=== PATIENT | male | born 1990 | race African-American/Black ===

== ENCOUNTER 2022-03-20 02:11 | Emergency (ER) | payer OTHER, SELFPAY ==
[2022-03-20 02:26] VITALS: BP 154/93; PULSE 90; RESP 17; TEMP 36.5; O2SAT 98; BMI 29.9
--- NOTE | 2022-03-20 03:51 | ED.NEUROSD ---
HPI - Neuro Symptoms/Deficit General Chief Complaint: Neuro Symptoms/Deficit Stated Complaint: Lt. side of face feels week Time Seen by Provider: 03/20/22 03:51 Source: patient Mode of arrival: Ambulatory History of Present Illness HPI Narrative: Patient is a 31-year-old male who presents with sudden onset of left facial droop. He is un exactly sure of when it happens he says sometime between noon and 5:00 p.m. yesterday. He noticed it because when he went to smoke a cigarette he could not quite feel his lips around the butt. He says it is just not going away. He denies any taste difficulty or speech difficulty. No numbness tingling or weakness. This is never happened to him before. He is on Truvada but denies HIV. On Anticoagulants: No Related Data Previous Rx's Medication Instructions Recorded artificial 2 drp EYE-BOTH BID 7 days #15 mL 03/20/22 tears(ldptawa-hjuufzsm-jdebkow) 0.1 %-0.3 %-0.2 % eye drops prednisone 20 mg tablet 60 mg PO DAILY #15 tabs 03/20/22 valacyclovir 1 gram tablet 1,000 mg PO TID #21 tabs 03/20/22 Allergies Allergy/AdvReac Type Severity Reaction Status Date / Time No Known Drug Allergies Allergy Verified 03/20/22 02:33 Review of Systems Review of Systems Narrative: GENERAL: Denies chills, fatigue, malaise, fever, sweats, travel HEENT: Denies sinus pain, ear pain, sore throat, difficulty swallowing, neck pain RESPIRATORY: Denies dyspnea, cough, wheezing, hemoptysis, sputum. CARDIOVASCULAR: Denies chest pain, palpitations, orthopnea, edema GASTROINTESTINAL: Denies nausea, vomiting, abdominal pain, diarrhea, constipation, melena. : Denies dysuria, frequency, incontinence, hematuria, urinary retention, flank pain. MUSCULOSKELETAL: Denies weakness, joint pain, or bony pain SKIN: No rash, no erythema, no pruritus NEUROLOGIC: See HPI PSYCHIATRIC: No concerning psychosocial issues. 12 point review of systems is negative except for those stated above and HPI Hematologic/Lymphatic On Anticoagulants: No Patient History Social History Smoking Status: Current every day smoker Smoking Status: Current every day smoker alcohol intake frequency: 0-2 drinks per day Substance Use Type: does not use Exam Initial Vital Signs Initial Vital Signs: Vital Signs Temperature 97.7 F 03/20/22 02:26 Pulse Rate 90 03/20/22 02:26 Respiratory Rate 17 03/20/22 02:26 Blood Pressure 154/93 H 03/20/22 02:26 Pulse Oximetry 98 03/20/22 02:26 Oxygen Delivery Method 03/20/22 02:26 GENERAL: Alert well-appearing 31-year-old male no acute distress although he is noted to have left facial droop HEENT: Head atraumatic,EOMI, pupils reactive, left facial droop what I does currently closed. Unable to wrinkle forehead for his no change on the left side. He also is not having any speech issues CARDIOVASCULAR: Regular rate and rhythm without murmurs, rubs or gallops. RESPIRATORY: Breath sounds equal bilaterally, no wheezes rales or rhonchi. ABDOMEN: Soft, nontender. Normoactive bowel sounds all 4 quadrants. No guarding or rebound. EXTREMITIES: Normal range of motion, no clubbing or edema. Neurovascularly intact NEUROLOGICAL: Alert and oriented x4.Normal gait and speech. Cranial nerves II through XII grossly intact. Good hneypt-vz-fwlu, good gvul-mk-cere, strength equal bilaterally, no dysarthria or aphasia, sensation in tact to soft touch bilaterally, no visual changes, no facial droop SKIN: Warm, dry, no laceration, no petechiae, no rashes or lesions. 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 His he has mild low-grade fever here. No other symptoms. Recommend he continue to monitor as needed. At this time he started on prednisone an antiviral medication. I do not see any need for further workup. This is unlikely stroke he is certainly out of window for tPA. Discharge Plan Departure Patient Disposition: Home Clinical Impression: Melton's palsy Instructions: Melton Palsy Activity Restrictions/Additional Instructions: *You have been diagnosed with Melton's palsy *What to do: Symptoms hopefully will start to improve over the next couple of weeks. *Continue to take medications as directed Bowel cyclic clear 1000 mg 3 times a day Artificial tears every hour in both eyes. The use ointment at night. Prednisone 60 mg once a day for 5 days *Follow up with your primary care provider in 2-3 days or call [phone] *Return to ER if you should have increasing blurry vision double vision fainting chest pain palpitations, numbness tingling weakness or any new, worsening or concerning symptoms Prescriptions: New valacyclovir 1 gram tablet 1,000 mg PO TID Qty: 21 0RF artificial tear(duuls-jey-bwx) 0.1-0.3-0.2 % drops 2 drp EYE-BOTH BID 7 Days Qty: 15 0RF prednisone 20 mg tablet 60 mg PO DAILY Qty: 15 0RF Visit Report Forms: Patient Portal/API
[2022-03-20 04:20] VITALS: BP 135/84; PULSE 70; RESP 16; O2SAT 98
== END 2022-03-20 04:26 | disposition home or self-care (01) ==
PROVIDERS: Emergency Provider Emergency Medicine
DX: G51.0 Bell's palsy (principal)
CPT/HCPCS: 93005; 93010; 99281; 99283